=== PATIENT | female | born 1955 | race Caucasian/White ===

== ENCOUNTER → 2019-10-13 | Outpatient (CLI) | payer OTHER ==
--- NOTE | 2019-10-13 10:44 | PCVCIMAG ---
APPROVED REPORT Study performed: 10/13/2019 08:14:02 EXAM: Comprehensive 2D, Doppler, and color-flow Echocardiogram Patient Location: Echo lab Room #: 2Status: routine BSA: 1.71 HR: 61 bpmBP: 120/72 mmHg Rhythm: NSR Other Information Study Quality: Good Risk Factors: Cardiac Risk Factors: HTN, DM Indications Diabetes Dyspnea Chest Pain Hypertension/HDD 2D Dimensions IVSd: 7.02 (7-11mm)LVOT Diam: 19.99 (18-24mm) LVDd: 46.40 mm PWd: 6.30 (7-11mm)Ascending Ao: 34.65 (22-36mm) LVDs: 26.83 (25-40mm) Left Atrium: 34.25 (27-40mm) Aortic Root: 28.63 mm LV Single Plane 4CH: 51.14 % LV Single Plane 2CH: 61.14 % Biplane EF: 55.5 % Volumes Left Atrial Volume (Systole) Single Plane 4CH: 38.81 mLSingle Plane 2CH: 32.78 mL Biplane LA Volume: 36.00 mLLA ESV Index: 21.00 mL/m2 Aortic Valve AoV Peak Mason.: 1.12 m/s AO Peak Gr.: 5.06 mmHgLVOT Max P.53 mmHg LVOT Max V: 0.62 m/s [place] Vmax: 1.72 cm2 Mitral Valve E/A Ratio: 0.9 MV Decel. Time: 101.45 ms MV E Max Mason.: 0.69 m/s MV A Mason.: 0.78 m/s IVRT: 79.58 ms TDI E/Lateral E': 13.80E/Medial E': 13.80 Medial E' Mason.: 0.05 m/s Lateral E' Mason.: 0.05 m/s Pulmonary Valve PV Peak Mason.: 0.78 m/sPV Peak Gr.: 2.42 mmHg Pulmonary Vein P Vein S: 0.57 m/sP Vein A: 0.29 m/s P Vein D: 0.39 m/sP Vein A Dur.: 86.5 msec P Vein S/D Ratio: 1.46 Tricuspid Valve TV Vmax: 0.49 m/s Left Ventricle The left ventricle is normal size. There is normal LV segmental wall motion. There is normal left ventricular wall thickness. Left ventricular systolic function is normal. The left ventricular ejection fraction is within the normal range. LVEF is 55-60%. The left ventricular diastolic function is normal. Right Ventricle The right ventricle is normal size. The right ventricular systolic function is normal. Atria The left atrium size is normal. The right atrium size is normal. Aortic Valve Aortic valve is trileaflet. The aortic valve is normal in structure and function. No aortic regurgitation is present. There is no aortic valvular stenosis. Mitral Valve The mitral valve is normal in structure. There is no mitral valve regurgitation noted. No evidence of mitral valve stenosis. Tricuspid Valve The tricuspid valve is normal in structure. There is no tricuspid valve regurgitation noted. Pulmonic Valve The pulmonary valve is normal in structure. There is no pulmonic valvular regurgitation. Great Vessels The aortic root is normal in size. The ascending aorta is normal in size. Aortic arch is normal in caliber. IVC is normal in size and collapses >50% with inspiration. Pericardium There is no pericardial effusion. There is no pleural effusion. <Conclusion> The left ventricle is normal size. LVEF is 55-60%. Aortic valve is trileaflet. The aortic valve is normal in structure and function. The mitral valve is normal in structure. The tricuspid valve is normal in structure. The pulmonary valve is normal in structure. There is no pericardial effusion.
--- NOTE | 2019-10-14 10:48 | PCVCIMAG ---
APPROVED REPORT Imaging Protocol: Rest Tc-99m/Stress Tc-99m 1 day Study performed: 10/13/2019 08:54:58 Indication: CAD, Dyspnea Patient Location: Out-Patient Stress Nurse: Fabi Soto RN, Desiree Ambrosio RN DC Tech:Juan Antonio CORBIN Solorzano Ht: 5 ft 2 in Wt: 154 lbs BSA: 1.71 m2 HR: 64 bpm BP: 131/66 mmHg BMI: 28.1 Rhythm: Sinus Rhythm Medical History Medical History: Age, HLP, HTN, CAD, DM (non-insulin), Family HX CAD Medications: Zetia, Lisinopril, Pravastatin Allergies: No known drug allergies Exercise History: Indeterminate Resting Data Rest SPECT myocardial perfusion imaging was performed in supine position 45 minutes following the intravenous injection of 10.9 mCi of Tc-99m Sestamibi. Time of rest injection: 0850 Date: 10/13/2019 Administration Route: IV Administration Site: Right Arm Exercise Stress At peak stress, the patient was injected intravenously with 32.8mCi of Tc-99m Sestamibi. Time of stress injection: 1010 Date: 10/13/2019 Administration Route: IV Administration Site: Right Arm Heart Rate at time of stress injection: 133 bpm. Patient continued to exercise for 1 minute(s). Gated Stress SPECT was performed 45 minutes after stress injection. The images were gated to evaluate regional wall motion and calculate left ventricular ejection fraction. Stress Test Details Stress Test: Exercise stress testing was performed using a Aries protocol. HRMax Heart Rate (APMHR): 156 bpm Resting HR: 64 bpmTarget HR (85% APMHR): 132 bpm Max HR Achieved: 134 bpm % of APMHR: 85 Recovery HR: 86 bpm HR response to stress: Normal HR response to stress BP Resting BP: 131/66 mmHg Max BP: 151/69 mmHg Recovery BP: 133/60 mmHg BP response to stress: Normal blood pressure response to stress. ECG Resting ECG: Sinus Rhythm Stress ECG: Sinus Tachycardia ST Change: Non-ischemic Maximum ST Deviation: 1.5 mm Arrhythmia: VPC's Recovery ECG: Sinus Rhythm Recovery ST Change: None Clinical Reason for Termination: Maximal effort Stress Symptoms: Leg Fatigue, Dizziness Exercise duration: 08 min 55 sec Exercise capacity: 10.10 METs Overall Exercise Capacity for Age: Average Scale: Sedentary Angina Score: None Symptoms resolved during recovery. Stress ECG Conclusion 1. subjectively negative for ischemia 2. electrocardiographically negative for ischemia 3. average functional capacity Ascencio Treadmill Score is 0.5 which is Moderate risk. Study Data Post stress, the left ventricular ejection was 74%.. SSS: 0 SRS: 0 SDS: 0 TID = 0.64. Perfusion There is a medium area of mildly reduced uptake in the entire segment of the inferior wall which is seen on the stress images as well as the resting images. This area thickens and moves normally and is most consistent with attenuation artifact. Wall Motion Normal left ventricular wall motion. Nuclear Conclusion ECG Findings: negative for ischemia Clinical Findings: negative for ischemia Nuclear Findings: negative for ischemia Exercise Capacity: average Left Ventricular Function: normal 1. low risk study 2. post stress lvef 74% without wall motion abnormalities Interpreted by: Zee Moffett MD Electronically Approved: 10/14/2019 10:48:04 <Conclusion> 1. subjectively negative for ischemia 2. electrocardiographically negative for ischemia 3. average functional capacity
== END | disposition home or self-care (01) ==
LOC: PCVCIMAG 08:06
PROVIDERS: ATTEND Internal Medicine
DX: I10 Essential (primary) hypertension (principal); E11.9 Type 2 diabetes mellitus without complications; R06.00 Dyspnea, unspecified; Z82.49 Family history of ischemic heart disease and other diseases of the circulatory system
CPT/HCPCS: 78452; 93017; 93306; A9500